=== PATIENT | male | born 1950 | race Caucasian/White ===

== ENCOUNTER 2020-04-01 14:03 | Emergency (ER) | payer MEDICARE, SELFPAY ==
[~2020-04-01] VITALS: Ht 180.3 cm; Wt 95.3 kg
[2020-04-01 14:12] VITALS: BP 126/73
[2020-04-01] MEDS: ASPIRIN 81 MG TAB.CHEW PO ONE (14:59)
--- NOTE | 2020-04-01 15:00 | NUR ---
C/O CHEST PAIN THIS MORNING, TESTED COVID + A COUPLE WEEKS AGO. DENIES SOB. CHILLS AND SWEATS PRESENT. EKG READS STEMI PER DR. CASTELLANO. PT IS STABLE AND NO DISTRESS NOTED AT THIS TIME.
--- NOTE | 2020-04-01 15:04 | NUR ---
[facility] at bedside to transport the patient to [facility] ED.
[2020-04-01 15:10] VITALS: BP 126/73
--- NOTE | 2020-04-01 15:10 | NUR ---
ATTEMPTED TO GIVE REPORT FOR PATIENT AT [phone] - NO ANSWER
--- NOTE | 2020-04-01 15:10 | NUR ---
Patient to be transferred to [facility]. Is being transferred due to NEED FOR HIGHER LEVEL OF CARE. Receiving facility has accepting physician and available space. ER physician has signed transfer form. Patient or responsible democrat has agreed to transfer and signed form. Patient belongings inventoried and will be sent with patient. Copy of nursing notes, lab reports, EKG, Physicians Orders and X-rays to be sent with patient.PT LEAVING WITH [facility] TRANSPORT AT THIS TIME.
--- NOTE | 2020-04-01 16:19 | NUR ---
Note undone in EDM - 04/01/20 at 1620 by [email or web address] C/O CHEST PAIN THIS MORNING, TESTED COVID + A COUPLE WEEKS AGO. DENIES SOB. CHILLS AND SWEATS PRESENT. EKG READS STEMI PER DR. CASTELLANO. PT IS STABLE AND NO DISTRESS NOTED AT THIS TIME.
== END 2020-04-01 15:10 | disposition short-term general hospital (02) ==
LOC: MED 14:03
DX: I21.3 ST elevation (STEMI) myocardial infarction of unspecified site (principal); R07.9 Chest pain, unspecified
CPT/HCPCS: 93005; 99283

== ENCOUNTER 2022-09-25 14:15 | Emergency (ER) | payer MEDICARE ==
[~2022-09-25] VITALS: Ht 172.7 cm; Wt 95.7 kg
[2022-09-25 14:17] VITALS: BP 120/71
--- NOTE | 2022-09-25 14:20 | NUR ---
71YO M C/O CP, DIZZINESS, DIFFICCULTY SWALLOWING 1HR AFTER BEE STING, PT DENIES SOB, DIFFICULTY BREATHING, N,V,D,C, RASH. PT STATES HE HAD HEART STENT ON 04/01/20. SWELLING AT LT ARMPIT NOTED. NAD. SAFETY MAINTAINED.
--- NOTE | 2022-09-25 14:46 | NUR ---
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
[2022-09-25 14:56] LABS: BASOPHILS # (AUTO) 0.1 K/uL (0.00-0.22); BASOPHILS % (AUTO) 1.3 % (0.0-2.0); EOSINOPHILS # (AUTO) 0.3 K/uL (0-0.4); EOSINOPHILS % (AUTO) 4.7 % (0.0-4.0); HEMATOCRIT 41.4 % (36-52); HEMOGLOBIN 13.9 g/dL (12.0-18.0); LYMPHOCYTES # (AUTO) 2.4 K/uL (2.0-11.5); LYMPHOCYTES % (AUTO) 32.9 % (20.5-51.1); MEAN CORPUSCULAR HEMOGLOBIN 30 pg (27-31); MEAN CORPUSCULAR HGB CONC 34 g/dL (33-37); MEAN CORPUSCULAR VOLUME 89.5 fL (80-94); MONOCYTES % (AUTO) 13.2 % (1.7-9.3); NEUTROPHILS # (AUTO) 3.5 K/uL (1.8-7.7); NEUTROPHILS % (AUTO) 47.9 % (42.2-75.2); PLATELET COUNT (AUTO) 178 K/uL (140-450); RED BLOOD CELL COUNT(AUTO) 4.63 MIL/uL (4.20-6.10); RED CELL DISTRIBUTION WIDTH 14.2 % (11.6-13.7); WHITE BLOOD COUNT (AUTO) 7.3 K/uL (4.8-10.8)
[2022-09-25] MEDS ORDERED: FAMOTIDINE 20 MG/2 ML VIAL IVP ONE (15:10)
[2022-09-25] MEDS ORDERED: predniSONE 20 MG TAB PO ONE (15:10)
[2022-09-25] MEDS ORDERED: diphenhydrAMINE 50 MG/ML VIAL IVP ONE (15:10)
[2022-09-25 15:12] LABS: ALBUMIN 3.6 g/dL (3.4-5.0); ANION GAP 10.9 (8-16); ASPARTATE AMINOTRANSFERASE 18 U/L (15-37); CARBON DIOXIDE 26.8 mmol/L (21-32); CHLORIDE 104 mmol/L (98-107); CREATININE 0.8 mg/dL (0.6-1.3); GLUCOSE 116 mg/dL (74-106); POTASSIUM 3.7 mmol/L (3.5-5.1); SODIUM SERUM 138 mmol/L (136-145); TOTAL BILIRUBIN 1.4 mg/dL (0.0-1.0); UREA NITROGEN, BLOOD 18 mg/dL (7-18)
[2022-09-25] MEDS ORDERED: BEN50 PO (17:16)
[2022-09-25] MEDS ORDERED: PRED20TA5 PO (17:16)
[2022-09-25 18:17] VITALS: BP 139/73
--- NOTE | 2022-09-25 18:17 | NUR ---
Patient discharged with v/s stable. Written and verbal after care instructions given and explained. Patient alert, oriented and verbalized understanding of instructions. Ambulatory with steady gait. All questions addressed prior to discharge. ID band removed. Patient advised to follow up with PMD. Rx of BENADRYL,DELTASONE given. Opportunity to ask questions provided and answered.
== END 2022-09-25 18:17 | disposition home or self-care (01) ==
LOC: MED 14:15
DX: T63.441A Toxic effect of venom of bees, accidental (unintentional), initial encounter (principal); R07.9 Chest pain, unspecified; R42 Dizziness and giddiness; I25.2 Old myocardial infarction; Z79.899 Other long term (current) drug therapy; Z98.890 Other specified postprocedural states; Y92.89 Other specified places as the place of occurrence of the external cause
CPT/HCPCS: 36415; 71045; 80053; 83880; 84484; 85025; 93005; 96374; 96375; 99285; J1200; J3490; J7512; Q0092